=== PATIENT | male | born 1970 | race Caucasian/White ===

== ENCOUNTER 2017-12-28 14:44 | Emergency (ER) | payer SELFPAY ==
--- NOTE | 2017-12-28 15:07 | ER Document Report ---
ED Medical Screen (RME) - General Chief Complaint: Swelling of Lower Extremity Stated Complaint: LEG SWELLING,NAUSEA Time Seen by Provider: 12/28/17 14:58 Notes: RAPID MEDICAL EVALUATION DISCLOSURE I have seen this patient as part of a Rapid Medical Evaluation and, if applicable, placed any initially appropriate orders. The patient will be seen and fully evaluated, including a full history and physical exam, by a provider ( in Main ED or Fast Track) when a room becomes available. 47-year-old male here with complaints of body swelling ongoing for the past few days. The swelling is much worse in his legs and feet than elsewhere however the states she notices some subtle swelling in his face neck and shoulders as well. Last week he broke his left arm in [place] and was prescribed tramadol which she has been taking for the pain. He does not have any chest pain or shortness of breath. Denies any prior history of acute renal failure. EXAM Pitting edema 2+ to the ankles No obvious edema to the face or neck TRAVEL OUTSIDE OF THE [place] IN LAST 30 DAYS: No - Related Data Allergies/Adverse Reactions: No Known Allergies Allergy (Verified 12/28/17 14:45) Past Medical History - Immunizations Hx Diphtheria, Pertussis, Tetanus Vaccination: Yes Physical Exam - Vital signs Vitals: Temp Pulse Resp BP Pulse Ox 98.0 F 97 16 157/102 H 97 12/28/17 14:54 12/28/17 14:54 12/28/17 14:54 12/28/17 14:54 12/28/17 14:54 Course - Vital Signs Vital signs: Temp Pulse Resp BP Pulse Ox 98.0 F 97 16 157/102 H 97 12/28/17 14:54 12/28/17 14:54 12/28/17 14:54 12/28/17 14:54 12/28/17 14:54 Doctor's Discharge - Discharge Referrals: LOCALMD,NO [Primary Care Provider] - Follow up as needed
[2017-12-28 15:38] LABS: ABSOLUTE EOSINOPHILS # (AUTO) 0.1 10^3/uL (0.0-0.6); ABSOLUTE LYMPHOCYTES (AUTO) 1.8 10^3/uL (0.5-4.7); ABSOLUTE MONOCYTES (AUTO) 0.6 10^3/uL (0.1-1.4); ABSOLUTE NEUT (AUTO) 4.6 10^3/uL (1.7-8.2); BASOPHILS % (AUTO) 0.6 % (0-2); EOSINOPHILS % (AUTO) 1.1 % (0-6); HEMATOCRIT 47.4 % (37.9-51.0); HEMOGLOBIN 16.5 g/dL (13.5-17.0); LYMPHOCYTES % (AUTO) 25.4 % (13-45); MEAN CORPUSCULAR HEMOGLOBIN 30.9 pg (27.0-33.4); MEAN CORPUSCULAR HGB CONC 34.9 g/dL (32.0-36.0); MEAN CORPUSCULAR VOLUME 88 fl (80-97); MONOCYTES % (AUTO) 8.2 % (3-13); PLATELET COUNT 289 10^3/uL (150-450); RED BLOOD COUNT 5.36 10^6/uL (4.35-5.55); RED CELL DISTRIBUTION WIDTH 14.1 % (11.5-14.0); SEGMENTED NEUTROPHILS % (AUTO) 64.7 % (42-78); TOTAL CELLS COUNTED % (AUTO) 100 %; WHITE BLOOD COUNT 7.2 10^3/uL (4.0-10.5)
[2017-12-28] MEDS ORDERED: NORMAL SALINE 1000 ML 1,000 ML IV PRN (15:39)
[2017-12-28] MEDS ORDERED: IPRATROPIUM/ALBUTEROL 0.5-2.5 MG/3 ML AMPUL NEB ONE (15:39)
[2017-12-28] MEDS ORDERED: RINGERS SOLUTION,LACTATED 1,000 ML IV ONE (15:39)
[2017-12-28] MEDS ORDERED: KETOROLAC TROMETHAMINE INJ/PF 30 MG/1 ML SDV IV ONE (15:41)
[2017-12-28] MEDS ORDERED: DIAZEPAM 2 MG TABLET PO ONE (15:41)
--- NOTE | 2017-12-28 15:45 | ER Document Report ---
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 She had a fall and injured his left elbow with fracture of the proximal radius. Discharge home on coming back here noted some swelling in the right ankle and foot and right lower leg. Also had generalized muscle aches and pains. No fever chills or other constitutional symptoms Onset: As above Duration: Sudden Severity: Moderate Quality: Achy Context: As above Exacerbating factor and relieving factors: Walking change of position and exertion REVIEW OF SYSTEMS: CONSTITUTIONAL : Denies fever, chills, or sweats. Denies recent illness. EENT: Denies eye, ear, throat, or mouth pain or symptoms. Denies nasal or sinus congestion or discharge. Denies throat, tongue, or mouth swelling or difficulty swallowing. CARDIOVASCULAR: Denies chest pain. Denies palpitations or racing or irregular heart beat. Denies ankle edema. RESPIRATORY: Denies cough, cold, or chest congestion. Denies shortness of breath, difficulty breathing, or wheezing. GASTROINTESTINAL: Denies distention. Denies nausea, vomiting, or diarrhea. Denies blood in vomitus, stools, or per rectum. Denies black, tarry stools. Denies constipation. GENITOURINARY: Denies difficulty urinating, painful urination, burning, frequency, blood in urine, or discharge. FEMALE GENITOURINARY: Denies vaginal bleeding, heavy or abnormal periods, irregular periods. Denies vaginal discharge or odor. MUSCULOSKELETAL: Denies back or neck pain or stiffness. Denies joint pain or swelling. SKIN: Denies rash, lesions or sores. HEMATOLOGIC : Denies easy bruising or bleeding. LYMPHATIC: Denies swollen, enlarged glands. NEUROLOGICAL: Denies confusion or altered mental status. Denies passing out or loss of consciousness. Denies dizziness or lightheadedness. Denies headache. Denies weakness or paralysis or loss of use of either side. Denies problems with gait or speech. Denies sensory loss, numbness, or tingling. Denies seizures. PSYCHIATRIC: Denies anxiety or stress. Denies depression, suicidal ideation, or homicidal ideation. ALL OTHER SYSTEMS REVIEWED AND NEGATIVE. PHYSICAL EXAMINATION: GENERAL: Well-appearing, well-nourished and in no acute distress. HEAD: Atraumatic, normocephalic. EYES: Pupils equal round and reactive to light, extraocular movements intact, conjunctiva are normal. ENT: Nares patent, oropharynx clear without exudates. Moist mucous membranes. NECK: Normal range of motion, supple without lymphadenopathy LUNGS: Breath sounds clear to auscultation bilaterally and equal. No wheezes rales or rhonchi. HEART: Regular rate and rhythm without murmurs ABDOMEN: Soft, nontender, nondistended abdomen. No guarding, no rebound. No masses appreciated. Examination of genitals-deferred Musculoskeletal: -Left elbow in splint and sling. Right upper arm no injuries. Right lower leg over the ankle particularly medial malleolus and fourth and fifth metatarsal bones are very tender on palpation. The skin shows swelling all around the ankle and foot. Generalized muscular tenderness noted on palpation. NEUROLOGICAL: Cranial nerves grossly intact. Normal speech, normal gait. Normal sensory, motor exams PSYCH: Normal mood, normal affect. SKIN: Warm, Dry, normal turgor, no rashes or lesions noted. Dictation was performed using [employer] voice recognition software TRAVEL OUTSIDE OF THE [place] IN LAST 30 DAYS: No - Related Data Allergies/Adverse Reactions: No Known Allergies Allergy (Verified 12/28/17 15:00) Past Medical History - Social History Smoking Status: Current Every Day Smoker Chew tobacco use (# tins/day): No Frequency of alcohol use: Rare Drug Abuse: None Family History: Reviewed & Not Pertinent Patient has suicidal ideation: No Patient has homicidal ideation: No Renal/ Medical History: Denies: Hx Peritoneal Dialysis - Immunizations Hx Diphtheria, Pertussis, Tetanus Vaccination: Yes Physical Exam - Vital signs Vitals: Temp Pulse Resp BP Pulse Ox 98.0 F 97 16 157/102 H 97 12/28/17 14:54 12/28/17 14:54 12/28/17 14:54 12/28/17 14:54 12/28/17 14:54 Course - Re-evaluation Re-evalutation: 12/28/17 18:11 Given IV fluid muscle relaxers. - Vital Signs Vital signs: Temp Pulse Resp BP Pulse Ox 98.0 F 97 16 157/102 H 97 12/28/17 14:54 12/28/17 14:54 12/28/17 14:54 12/28/17 14:54 12/28/17 14:54 - Laboratory Result Diagrams: 12/28/17 15:05 12/28/17 15:05 Laboratory results interpreted by me: 12/28/17 12/28/17 12/28/17 15:05 15:05 15:05 RDW 14.1 H D-Dimer 0.62 H Total Bilirubin 1.4 H Urine Ketones Urine Urobilinogen 12/28/17 15:05 RDW D-Dimer Total Bilirubin Urine Ketones TRACE H Urine Urobilinogen 2.0 H - Diagnostic Test Radiology reviewed: Reports reviewed - X-rays of the ankle and foot reported by radiologist as no fractures. CT of the ankle shows no fractures. Discharge - Discharge Clinical Impression: Myalgia and myositis Contusion of right ankle Qualifiers: Encounter type: initial encounter Qualified Code(s): S90.01XA - Contusion of right ankle, initial encounter Contusion of right foot Qualifiers: Encounter type: initial encounter Qualified Code(s): S90.31XA - Contusion of right foot, initial encounter Condition: Fair Disposition: ADMITTED INPATIENT Instructions: Contusion ([facility]) Prescriptions: Diazepam [Valium] 2 mg PO BID #14 tablet Hydrocodone/Acetaminophen [Hydrocodon-Acetaminophen 5-325] 1 each PO QID PRN # 14 tablet PRN Reason: Naproxen 500 mg PO BID #60 tablet Referrals: LOCALMD,NO [NO LOCAL MD] - Follow up as needed
[2017-12-28 15:54] LABS: ALANINE AMINOTRANSFERASE 24 U/L (21-72); ALBUMIN 4.4 g/dL (3.5-5.0); ALKALINE PHOSPHATASE 78 U/L (38-126); ANION GAP 13 (5-19); ASPARTATE AMINO TRANSFERASE 33 U/L (17-59); BILIRUBIN,DIRECT 0.3 mg/dL (0.0-0.4); BILIRUBIN,TOTAL 1.4 mg/dL (0.2-1.3); BLOOD UREA NITROGEN 10 mg/dL (7-20); CALCIUM 9.8 mg/dL (8.4-10.2); CARBON DIOXIDE 27 mmol/L (22-30); CHLORIDE 102 mmol/L (98-107); GLUCOSE 105 mg/dL (75-110); POTASSIUM 4.2 mmol/L (3.6-5.0); SODIUM 141.8 mmol/L (137-145); TOTAL PROTEIN 7.5 g/dL (6.3-8.2)
--- NOTE | 2017-12-28 16:14 | RADIOLOGY REPORT (SQ) ---
EXAM DESCRIPTION: ANKLE RIGHT COMPLETE COMPLETED DATE/TIME: 12/28/2017 4:04 pm REASON FOR STUDY: Foot and ankle injury COMPARISON: None. NUMBER OF VIEWS: Three views. TECHNIQUE: AP, lateral, and oblique radiographic images acquired of the right ankle. LIMITATIONS: None. FINDINGS: MINERALIZATION: Normal. BONES: No acute fracture or dislocation. No worrisome bone lesions. JOINTS: Ankle mortise intact. SOFT TISSUES: No metallic foreign bodies. OTHER: No other significant finding. IMPRESSION: No acute fractures identified. TECHNICAL DOCUMENTATION: JOB ID: [id number] [employer]- All Rights Reserved Reading location - IP/workstation name: [email or web address]
--- NOTE | 2017-12-28 16:16 | RADIOLOGY REPORT (SQ) ---
EXAM DESCRIPTION: FOOT RIGHT COMPLETE COMPLETED DATE/TIME: 12/28/2017 4:04 pm REASON FOR STUDY: Foot and ankle injury COMPARISON: None. NUMBER OF VIEWS: Three views. TECHNIQUE: AP, lateral and oblique radiographic images acquired of the right foot. LIMITATIONS: None. FINDINGS: MINERALIZATION: Normal. BONES: No acute fracture or dislocation. No worrisome bone lesions. JOINTS: Joint spaces maintained. SOFT TISSUES: No metallic foreign bodies. OTHER: No other significant finding. IMPRESSION: No acute fractures identified. TECHNICAL DOCUMENTATION: JOB ID: [id number] [employer]- All Rights Reserved Reading location - IP/workstation name: [email or web address]
[2017-12-28 16:57] LABS: APPEARANCE,URINE CLEAR; BILIRUBIN,URINE NEGATIVE (NEGATIVE); COLOR,URINE YELLOW; GLUCOSE, URINE NEGATIVE (NEGATIVE); KETONES,URINE TRACE mg/dL (NEGATIVE); LEUKOCYTE ESTERASE,URINE NEGATIVE (NEGATIVE); NITRITE,URINE NEGATIVE (NEGATIVE); PROTEIN,URINE NEGATIVE (NEGATIVE); URINE SPECIFIC GRAVITY 1.011
--- NOTE | 2017-12-28 17:54 | RADIOLOGY REPORT (SQ) ---
EXAM DESCRIPTION: CT RT LOWER EXTREMITY WITHOUT COMPLETED DATE/TIME: 12/28/2017 5:40 pm REASON FOR STUDY: pain, rule out occult fracture COMPARISON: Radiographs 12/28/2017 TECHNIQUE: CT scan of the right ankle performed without intravenous or oral contrast. Images review ed with soft tissue and bone windows. Reconstructed coronal and sagittal MPR images reviewed. All i mages stored on PACS. All CT scanners at this facility use dose modulation, iterative reconstruction, and/or weight based d osing when appropriate to reduce radiation dose to as low as reasonably achievable (ALARA). [facility]: Dose Right [facility]: CareDose [facility]: Dose Right [facility]: Teradose 4D [facility]: [employer] RADIATION DOSE: CT Rad equipment meets quality standard of care and radiation dose reduction techniq ues were employed. CTDIvol: 4.1 mGy. DLP: 137 mGy-cm. mGy. LIMITATIONS: None. FINDINGS: Imaging of the right ankle shows no fracture or other acute osseous or joint abnormality. IMPRESSION: No evidence of fracture the right ankle. TECHNICAL DOCUMENTATION: JOB ID: [id number] Quality ID # [id number]: Final reports with documentation of one or more dose reduction techniques (e.g., Au tomated exposure control, adjustment of the mA and/or kV according to patient size, use of iterative reconstruction technique) 2010 [employer]- All Rights Reserved Reading location - IP/workstation name: [email or web address]
[2017-12-28 18:46] VITALS: BP 156/104
== END 2017-12-28 18:49 | disposition home or self-care (01) ==
LOC: ER 14:44
DX: S90.01XA Contusion of right ankle, initial encounter (principal); S90.31XA Contusion of right foot, initial encounter; S52.102D Unspecified fracture of upper end of left radius, subsequent encounter for closed fracture with routine healing; M79.1 Myalgia; M79.89 Other specified soft tissue disorders; R11.0 Nausea; W19.XXXD Unspecified fall, subsequent encounter; F17.200 Nicotine dependence, unspecified, uncomplicated
CPT/HCPCS: 94640; 99284; 96361; 96374; 36415; 85025; 80053; 81001; 85379; 73610; 73630; 73700; J3490; J1885; J7030; J7120; J7620

== ENCOUNTER → 2020-01-25 | Day surgery (SDC) | payer OTHER ==
--- NOTE | 2020-01-25 15:04 | RADIOLOGY REPORT (SQ) ---
EXAM DESCRIPTION: FLUORO/NEEDLE PLACEMENT; ARTHRO ELBOW INJECTION IMAGES COMPLETED DATE/TIME: 01/25/2020 2:52 pm REASON FOR STUDY: DISPLACD FX OF HEAD OF LEFT RADIUS (S52.122S) S52.122S DISPLACED FRACTURE OF HEAD OF LEFT RADIUS, SEQUELA COMPARISON: None. FLUOROSCOPY TIME: 0.2 minutes of fluoroscopy was used. 1 images saved to PACS. LIMITATIONS: None. PROCEDURE: Procedure, risks, benefits and alternatives explained to patient who then gave written co nsent. The left elbow was marked and a time-out was called for correct marking verification. Entry site marked using fluoroscopic guidance. Elbow prepped and draped using sterile technique. Local an esthesia achieved using 1% lidocaine injection. Hypodermic needle introduced into the joint space un barb direct fluoroscopic visualization. Non-ionic contrast instilled to confirm intra-articular posit ion. Additional dilute non-ionic contrast instilled. Needle removed and entry site covered with elizabeth rile bandage. No immediate complications noted. TECHNIQUE: Digital images acquired during fluoroscopy and stored on PACS. Patient immediately take n to the CT suite for additional imaging. INJECTION LOCATION: Left elbow CONTRAST TYPE AND AMOUNT: 3 mL Omnipaque saline mixture IMPRESSION: SUCCESSFUL NEEDLE PLACEMENT AND INJECTION FOR LEFT ELBOW CT ARTHROGRAM. COMMENT: Quality ID 145: Final reports for procedures using fluoroscopy that document radiation exp osure indices, or exposure time and number of fluorographic images (if radiation exposure indices are not available) TECHNICAL DOCUMENTATION: JOB ID: [id number] 2010 [employer]- All Rights Reserved Reading location - IP/workstation name: [email or web address] [id number]
--- NOTE | 2020-01-25 15:04 | RADIOLOGY REPORT (SQ) ---
EXAM DESCRIPTION: FLUORO/NEEDLE PLACEMENT; ARTHRO ELBOW INJECTION IMAGES COMPLETED DATE/TIME: 01/25/2020 2:52 pm REASON FOR STUDY: DISPLACD FX OF HEAD OF LEFT RADIUS (S52.122S) S52.122S DISPLACED FRACTURE OF HEAD OF LEFT RADIUS, SEQUELA COMPARISON: None. FLUOROSCOPY TIME: 0.2 minutes of fluoroscopy was used. 1 images saved to PACS. LIMITATIONS: None. PROCEDURE: Procedure, risks, benefits and alternatives explained to patient who then gave written co nsent. The left elbow was marked and a time-out was called for correct marking verification. Entry site marked using fluoroscopic guidance. Elbow prepped and draped using sterile technique. Local an esthesia achieved using 1% lidocaine injection. Hypodermic needle introduced into the joint space un barb direct fluoroscopic visualization. Non-ionic contrast instilled to confirm intra-articular posit ion. Additional dilute non-ionic contrast instilled. Needle removed and entry site covered with elizabeth rile bandage. No immediate complications noted. TECHNIQUE: Digital images acquired during fluoroscopy and stored on PACS. Patient immediately take n to the CT suite for additional imaging. INJECTION LOCATION: Left elbow CONTRAST TYPE AND AMOUNT: 3 mL Omnipaque saline mixture IMPRESSION: SUCCESSFUL NEEDLE PLACEMENT AND INJECTION FOR LEFT ELBOW CT ARTHROGRAM. COMMENT: Quality ID 145: Final reports for procedures using fluoroscopy that document radiation exp osure indices, or exposure time and number of fluorographic images (if radiation exposure indices are not available) TECHNICAL DOCUMENTATION: JOB ID: [id number] 2010 [employer]- All Rights Reserved Reading location - IP/workstation name: [email or web address] [id number]
--- NOTE | 2020-01-26 08:38 | RADIOLOGY REPORT (SQ) ---
EXAM DESCRIPTION: CT LT UPPER EXTREMITY WITH IMAGES COMPLETED DATE/TIME: 01/25/2020 2:53 pm REASON FOR STUDY: DISPLACD FX OF HEAD OF LEFT RADIUS (S52.122S) S52.122S DISPLACED FRACTURE OF HEAD OF LEFT RADIUS, SEQUELA COMPARISON: None. EXAM PARAMETERS: TECHNIQUE: AXIAL CT IMAGING WAS PERFORMED THROUGH THE LEFT ELBOW AFTER THE UNEVENTF UL ADMINISTRATION OF INTRA-ARTICULAR CONTRAST. LIMITATIONS: None. FINDINGS: BONES: There is cortical irregularity of the radial head consistent with a subacute mildly displaced radial head fracture with approximately 2.5 mm gap in the articular surface. Intraarticul ar contrast does not extend into this defect. Incidental note is made of subcortical cystic changes of the trochlea and coronoid process. Osseous mineralization and alignment are otherwise normal SOFT TISSUES: Evaluation of the remaining musculotendinous structures is limited. Incidental note is made of a small curvilinear retained foreign body in the region of the proximal pronator teres. OTHER: No other significant finding. IMPRESSION: Subacute mildly displaced radial head fracture with approximately 2.5 mm gap in the berto cular surface. TECHNICAL DOCUMENTATION: JOB ID: [id number] 2010 [email or web address]- All Rights Reserved Reading location - IP/workstation name: [email or web address]
== END ==
LOC: RAD 14:20
PROVIDERS: ATTEND Orthopaedic Surgery
DX: S52.122S Displaced fracture of head of left radius, sequela (principal); X58.XXXS Exposure to other specified factors, sequela
CPT/HCPCS: 24220; 77002